=== PATIENT | female | born 1955 | race Caucasian/White ===

== ENCOUNTER 2021-03-24 15:06 | Inpatient (IN) | payer OTHER ==
[~2021-03-24] VITALS: Ht 152.4 cm; Wt 62.3 kg
--- NOTE | ~2021-03-24 | HC ---
[facility] [place] [address] CONSULTATION Name: RUBY WHYTE Room #: 208-P [facility] IN M.R.#: [id number] Admission: 03/24/21 Attend Phys: Tre Snell MD Discharge: Date of : 57 Report #: [id number] THIS REPORT FOR: cc: FAM - No family physician/PCP FAM - No family physician/PCP Terell Seo MD ~ DATE OF SERVICE: 03/28/2021 HISTORY OF PRESENT ILLNESS: The patient is a 65-year-old white female admitted with mental status changes, noted to have toxic metabolic encephalopathy. History of ETOH abuse. Noted to have failure to thrive. She also was noted to have uterine fibroids with pelvic ultrasound and Gynecology consultation. She is noted to have anemia, has been seen by Hematology and thought to be bone marrow toxicity due to her chronic alcoholism. Noted to have a history of daily ETOH abuse, drinking upwards of 4 glasses of wine. We are seeing her in rehabilitation medicine consultation. PAST MEDICAL HISTORY: Includes daily ETOH use. She has a history of chronic anemia. HABITS: Past tobacco abuse, 10-year history. MEDICATIONS: Please see the full medication list. SOCIAL HISTORY: Lives alone in an apartment. Premorbidly gait was without an assistive device, although there is some reference to using some type of a shopping cart although the patient is uncertain regarding this. She apparently uses a walker when she was feeling unstable. The patient is not employed and does not remember if she worked or not until her sister corrected her that she actually was working, but had been unfortunately fired from her most recent job. The sister is here visiting from [place] and there is a brother that lives about 25 minutes away here in the [place] area. There are no other direct family members other than some nieces and nephews. REVIEW OF SYSTEMS: The patient did not offer any current complaints of chest pain, shortness of breath or abdominal discomfort. PHYSICAL EXAMINATION: GENERAL: A 65-year-old white female in no obvious distress. She is alert, pleasant. She follows basic 1-step commands. VITAL SIGNS: Temperature 36.4, pulse 111, respirations 16, blood pressure 122/88. NEUROLOGIC: Alert, follows basic commands. Facies are symmetric. She has definite latency to her responses, appears unsure of herself, defers to her sister. EXTREMITIES: Functional range of motion of both upper extremities, strength is [facility] [address] [place] [address] CONSULTATION Name: RUBY WHYTE Room #: 208-P [facility] IN .R.#: [id number] Admission: 03/24/21 Attend Phys: Tre Snell MD Discharge: Date of : 57 Report #: [id number] grade 4-/5. Lower extremities, no focal calf swelling. Functional range of motion, strength is grade 4-/5 to 3+/5. She is min assist; sit to stand, gait 58 feet min assist with a front-wheeled walker. Lower extremity dressing is max assist. She has moderate cognitive deficits with moderate to severe memory deficits noted per speech therapy. ASSESSMENT: A 65-year-old white female with the following problem list: 1. Toxic metabolic encephalopathy. 2. Dementia, likely worsened by chronic alcoholism. 3. Anemia, likely due to chronic alcohol toxicity. 4. Uterine fibroids with [employer] consult. 5. Enteritis seen on CT was on Zosyn, which appears to have resolved now. 6. Failure to thrive. PLAN: Insurance will need to be checked regarding rehab therapy options. Issues regarding long-term living situation were discussed with the patient's sister. We discussed a rehabilitation program then hopefully with further progress with physical rehabilitation she could then attempt some type of alcohol rehabilitation program. She first needs to improve overall physically and cognitively, however. Again, insurance will need to be checked regarding rehab therapy options. By: [id number] Terell Seo MD /nt
[~2021-03-24 15:06] MED LIST: ATIVAN0.5 MG PO; ST. JOHN'S WOR150 MG PO; [UNRECOGNIZED DRUG - OTHER] PO
[2021-03-24 15:07] VITALS: BP 130/90
[2021-03-24 15:48] LABS: ABSOLUTE NEUTROPHILS 7.3 thou/uL (1.4-8.2); BASOPHILS 0.8 % (0.0-2.0); EOSINOPHILS 0.2 % (0.0-3.0); HEMATOCRIT 28.3 % (37.0-47.0); HEMOGLOBIN 9.4 gm/dL (12.0-15.0); LYMPHOCYTES 22.4 % (24.0-44.0); MCH 34.4 pg (26.0-34.0); MCHC 33.2 g/dL (28.0-37.0); MCV 103.6 fL (80.0-100.0); MONOCYTES 6.5 % (1.0-8.0); PLATELET COUNT 253 thou/uL (150-400); POLYS 70.1 % (36.0-66.0); RBC 2.74 mil/uL (4.20-5.00); RDW 21.1 % (10.5-14.5); WBC 10.4 thou/uL (4.0-11.0)
[2021-03-24 16:08] LABS: CALCIUM 8.4 mg/dL (8.5-10.1); CREATININE 1.1 mg/dL (0.6-1.0); POTASSIUM 3.4 mmol/L (3.5-5.1)
[2021-03-24 16:11] LABS: TOTAL BILIRUBIN 1.6 mg/dL (0.2-1.0); TOTAL PROTEIN 5.9 g/dL (6.4-8.2)
[2021-03-24 19:37] LABS: URINE BLOOD TRACE (Negative); URINE CLARITY CLEAR; URINE COLOR YELLOW; URINE GLUCOSE-RANDOM* NEGATIVE (Negative); URINE KETONES 2+ (Negative); URINE LEUKOCYTES-REFLEX TRACE (Negative); URINE NITRITE-REFLEX NEGATIVE (Negative); URINE PROTEIN (DIPSTICK) NEGATIVE (Negative)
[2021-03-24 19:42] LABS: ICTOTEST (BILI CONFIRMATORY) Negative (Negative); URINE BILIRUBIN NEGATIVE (Negative)
[2021-03-24 19:45] LABS: AMP/METHAMP Negative (Negative); BARBITURATES Negative (Negative); BENZODIAZEPINES Negative (Negative); COCAINE Negative (Negative); METHADONE Negative (Negative); OPIATES Negative (Negative); PCP Negative (Negative)
[2021-03-24 20:24] LABS: TROPONIN-I <0.06 ng/mL (<0.06)
[2021-03-24 22:30] VITALS: BP 131/85
--- NOTE | 2021-03-24 22:57 | NUR ---
SPOKE WITH PT BROTHER, HE IS CONCERNED THAT PT WANTS TO LEAVE AND NOT BE ADMITTED. SHE CALLED HIM TO COME AN PICK HER UP BUT HE IS CONCERNED THAT THAT IS NOT THE BEST THING FOR HER. TOLD BROTHER TO GO HOME AND THAT IF THE PT CALLS HIM HE CAN SAY THAT WE TOLD HIM THAT HE COULD NOT COME BACK TO THE ER [facility] AND NEEDED TO WAIT UNTIL MORNING. ASSURED BROTHER THAT PT WOULD RECEIVE BEST CARE HERE AT HOSPITAL.
[2021-03-25 05:00] VITALS: BP 141/81
[2021-03-25 08:24] LABS: HEMATOCRIT 24.7 % (37.0-47.0); HEMOGLOBIN 8.2 gm/dL (12.0-15.0); MCH 34.1 pg (26.0-34.0); MCHC 33.2 g/dL (28.0-37.0); MCV 102.9 fL (80.0-100.0); RBC 2.4 mil/uL (4.20-5.00); RDW 21.6 % (10.5-14.5)
[2021-03-25 08:30] LABS: CALCIUM 7.4 mg/dL (8.5-10.1); CREATININE 0.9 mg/dL (0.6-1.0); POTASSIUM 3.1 mmol/L (3.5-5.1)
[2021-03-25 08:36] LABS: % SATURATION 84 % (20-39); IRON 71 ug/dL (50-170); TIBC 85 ug/dL (250-450)
--- NOTE | 2021-03-25 09:50 | EKG ---
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 03/25/21 0950 [id number] [id number] Blair Bush MD, FACC /EPI
[2021-03-25 17:58] VITALS: BP 138/87
[2021-03-25 18:20] VITALS: BP 147/98
[2021-03-25 22:40] VITALS: BP 146/83
[2021-03-26 00:07] VITALS: BP 154/102
--- NOTE | 2021-03-26 03:31 | NUR ---
ASSESSMENT: PT WAS ADMITTED RIGHT AT SHIFT CHANGE TO THE UNIT, COMING FROM ED. PT IS ALERT AND PLEASANTLY CONFUSED TO PLACE, TIME AND SITUATION. PT'S BROTHER AND SISTER WERE VISITING. PT DOES NOT ANSWER QUESTIONS APPROPRIATELY, STATES THAT SHE IS "SCARED" AND HAS NEVER BEEN HERE BEFORE. LOTS OF REASSURANCE AND ENCOURAGEMENT GIVEN. VSS, AFEBRILE. PT STATE THAT SHE DRINKS GLASSES OF WINE, ALONE AND SHE ALSO "DRINKS OTHER STUFF, LIKE COLA, JUICE.... PT HAS VERY FINE TREMORS, SLIGHT SWEATINESS AND VERY MILD TREMORS. PT ABLE TO STATE BB AND NAME. DID NOT RECALL THE NAME OF THE HOSPITAL, WHY SHE WAS HERE AND THE DAY OF THE WEEK. WILL CONTINUE TO MONITOR.
[2021-03-26 04:29] LABS: HEMATOCRIT 23.1 % (37.0-47.0); HEMOGLOBIN 7.7 gm/dL (12.0-15.0); MCH 34.4 pg (26.0-34.0); MCHC 33.5 g/dL (28.0-37.0); MCV 102.5 fL (80.0-100.0); RBC 2.25 mil/uL (4.20-5.00); RDW 21.3 % (10.5-14.5); WBC 5.7 thou/uL (4.0-11.0)
[2021-03-26 04:40] LABS: CALCIUM 7.2 mg/dL (8.5-10.1); CREATININE 0.8 mg/dL (0.6-1.0); MAGNESIUM 1.7 mg/dL (1.8-2.4)
[2021-03-26 04:43] LABS: POTASSIUM 2.8 mmol/L (3.5-5.1)
[2021-03-26 06:13] VITALS: BP 152/104
[2021-03-26 07:28] VITALS: BP 144/97
[2021-03-26 12:07] LABS: FOLIC ACID 11.9 ng/mL (8.6-58.9)
[2021-03-26 14:02] LABS: MAGNESIUM 2.2 mg/dL (1.8-2.4)
[2021-03-26 14:07] LABS: POTASSIUM 3.9 mmol/L (3.5-5.1)
[2021-03-26 15:12] VITALS: BP 132/90
[2021-03-26 19:59] VITALS: BP 116/83
[2021-03-27 03:12] LABS: HEMATOCRIT 22.6 % (37.0-47.0); HEMOGLOBIN 7.5 gm/dL (12.0-15.0); MCH 34.1 pg (26.0-34.0); MCHC 33.2 g/dL (28.0-37.0); RBC 2.19 mil/uL (4.20-5.00); RDW 21.5 % (10.5-14.5); WBC 6.2 thou/uL (4.0-11.0)
[2021-03-27 03:23] LABS: CALCIUM 7.4 mg/dL (8.5-10.1); CREATININE 0.8 mg/dL (0.6-1.0); MAGNESIUM 2.4 mg/dL (1.8-2.4); POTASSIUM 3.9 mmol/L (3.5-5.1)
[2021-03-27 03:29] VITALS: BP 153/99
--- NOTE | 2021-03-27 04:12 | NUR ---
PT IS ALERT X2. WITH CONFUSION FREQUENTLY BUT PLEASANT PT. LUNGS ARE CLEAR ON ROOM AIR. DENIES ANY PAIN. NO EDEMA NOTED. ABDOMEN IS FLAT BOWEL SOUNDS ACTIVE X4. FREQUENT ROUNDING ON PT DUE TO HISTORY OF FALLS. YELLOW SOCKS AND BED ALARM ON. WILL CONTINUE TO ASSESS AND MONITOR PER NURSING.
[2021-03-27 07:54] VITALS: BP 155/91
[2021-03-27 09:46] LABS: ABSOLUTE RETIC COUNT 0.1054 10^6/uL; OBSERVED RETIC COUNT 3.77 % (0.6-2.6)
[2021-03-27 10:59] VITALS: BP 128/87
[2021-03-27 15:59] VITALS: BP 131/94
--- NOTE | 2021-03-27 18:13 | NUR ---
ASSUMED CARE AT 1300. PT AFEBRILE, ADEQUATE UOP, NO BM, APPROPRIATE APPETITE. TRANSVAGINAL ULTRASOUND COMPLETED. PT HAS BEEN UPDATED AND EDUCATED ON CONDITION AND POC. PT SLOWLY PROGRESSING TOWARDS POC.
[2021-03-27 19:28] VITALS: BP 124/87
[2021-03-27 23:06] LABS: HAPTOGLOBIN 147 mg/dL (37-355); HEMOGLOBIN 9.7 g/dL (11.1-15.9); IgA 259 mg/dL (87-352); IgG 999 mg/dL (586-1602); IgM 473 mg/dL (26-217)
[2021-03-28 00:30] VITALS: BP 140/94
[2021-03-28 03:55] LABS: HEMATOCRIT 21.4 % (37.0-47.0); HEMOGLOBIN 7.2 gm/dL (12.0-15.0); MCH 35.3 pg (26.0-34.0); MCHC 33.8 g/dL (28.0-37.0); MCV 104.4 fL (80.0-100.0); RBC 2.05 mil/uL (4.20-5.00); RDW 22.2 % (10.5-14.5)
[2021-03-28 04:04] LABS: CALCIUM 7.5 mg/dL (8.5-10.1); CREATININE 0.7 mg/dL (0.6-1.0); MAGNESIUM 2.1 mg/dL (1.8-2.4); POTASSIUM 3.7 mmol/L (3.5-5.1)
--- NOTE | 2021-03-28 04:13 | NUR ---
PT IS ALERT AND ORIENTED X2 WITH PERIODS OF CONFUSION. LUNGS ARE CLEAR. ABDOMEN IS SOFT AND FLAT. DENIES ANY PAIN NOTED. RESTARTED IV IN RIGHT FOREARM HER OTHER ONE IN LEFT ARM WAS LEAKING AT THE BEGINNING OF SHIFT. CALL LIGHT WITHIN REACH AND CALLS FOR ASSISTANCE IF NEEDED
[2021-03-28 05:59] VITALS: BP 156/101
[2021-03-28 08:25] VITALS: BP 122/88
[2021-03-28 12:00] VITALS: BP 100/73
[2021-03-28 16:06] LABS: KAPPA FREE LIGHT CHAINS 26.6 mg/L (3.3-19.4); KAPPA/LAMBDA RATIO 0.9 (0.26-1.65); LAMBDA FREE LIGHT CHAINS 29.6 mg/L (5.7-26.3)
--- NOTE | 2021-03-28 17:18 | NUR ---
Met with patient and sister at bedside. Patient resides at home in [facility]. She reports she does not have a walker but may use a shopping cart if needed.Patient has a car and drives but has not driven in since December. Patient works at [employer] but has not worked since December. Sister has called [employer] to begin [employer] process. Patient reports she drinks 4 ETOH drinks a day. She has no hx of ETOH treatment. Gave cigna list and reviewed. Patient not a candidate for [facility]. Family to review list and discuss options.
--- NOTE | 2021-03-28 17:36 | NUR ---
Met with patient who is to dc home today. patient resides in [facility]. She has a walker for ambulation. patient reports at pr her dtr cannot transport she is concerned with getting transport home. she does not have her walker here at [facility]. Patient reports she has [facility] care on service. Plan for [facility] [employer] van for home. Sp with admissions at [facility] who reports they do have patient on service. Faxed orders to [facility] [employer] van for [phone]. Verified address. Updated RN.
[2021-03-28 17:44] VITALS: BP 108/78
[2021-03-28 20:17] VITALS: BP 115/75
--- NOTE | 2021-03-29 03:37 | NUR ---
ASSESSMENT DOCUMENTED.PT BEEN RESTING IN NO ACUTE DISTRESS.A/OX3.VSS.SR N MONITOR.ASSIST WITH ADLS X1 -2 ASSIST.PT DENIES ANY NEEDS AT THIS TIME.POSSIBLE DISCHARGE TO SNF WHENEVER STABLE.
[2021-03-29 03:59] LABS: HEMATOCRIT 22.4 % (37.0-47.0); HEMOGLOBIN 7.4 gm/dL (12.0-15.0); MCH 34.5 pg (26.0-34.0); MCHC 32.9 g/dL (28.0-37.0); MCV 104.8 fL (80.0-100.0); RBC 2.13 mil/uL (4.20-5.00); RDW 22.5 % (10.5-14.5); WBC 5.5 thou/uL (4.0-11.0)
[2021-03-29 04:28] LABS: CALCIUM 7.7 mg/dL (8.5-10.1); CREATININE 0.8 mg/dL (0.6-1.0); POTASSIUM 3.9 mmol/L (3.5-5.1)
[2021-03-29 04:31] VITALS: BP 144/93
[2021-03-29 08:09] VITALS: BP 139/105
[2021-03-29 13:08] LABS: GLOBULIN TOTAL 2.9 g/dL (2.2-3.9); M-SPIKE Not Observed g/dL (Not Observed)
--- NOTE | 2021-03-29 13:29 | NUR ---
SPOKE WITH SISTER AND PATIENT THEY WISH FOR REFERRALS TO [facility]. REFERRAL SENT TO [facility] PATIENT IS STABLE TO TRANSITION TO SKILLED CARE. SP WITH [facility] REGARDING REFERRAL.
[2021-03-29 16:06] LABS: CA 125 417.3 U/mL (0.0-38.1)
[2021-03-29 17:42] VITALS: BP 129/97
[2021-03-29 20:00] VITALS: BP 122/92
--- NOTE | 2021-03-29 22:32 | NUR ---
PATIENT TRANSFERRED TO [facility] ROOM 461. FULL DETAILED REPORT GIVEN WITH PATIENTS SISTER NOTIFIED OF TRANSFER.
--- NOTE | 2021-03-30 04:52 | NUR ---
PT REMAIN ALERT AND ORIENT TIMES ONE-TWO. DOES KNOW THE PLACE THAT SHE IS IN AND HER NAME. TALKS ABOUT THINGS ON THE WALL AND DOGS GOING IN AND OUT OF THE WINDOW AREA. BP ELEVATED UPON ARRIVAL. SR-ST PER MONITOR. SLOW PROGRESS WILL CONTINUE TO MONITOR.
[2021-03-30 08:40] VITALS: BP 152/113
--- NOTE | 2021-03-30 09:10 | NUR ---
spoke with Carmen from [facility]. She reports patient hotlined for concerns for ability to care for self at home. [phone]. Updated referrral to [facility]. Planned to update of dc plan once established.
[2021-03-30 14:07] LABS: CEA 2.8 ng/mL (0.0-4.7)
--- NOTE | 2021-03-30 19:59 | NUR ---
Assumed pt care this am, vs stable. diet and medications tolerated well. Pain is managed with medications. Was able to work with physical therapy, gait is not steady. Sister at the bedside, POC followed endorsed to the night nurse.
[2021-03-30 20:07] VITALS: BP 148/95
--- NOTE | 2021-03-31 05:52 | NUR ---
Assumed pt care at 1900. A/OX2-3,able to make needs known at times.VSS. C/o pain allover,medicated with Tylenol/Voltaren gel with relief reported. Up with assist of 1-2 to BSC.Continent of bladder this shift. Fall precautions in palce,frequent checks on pt. Will continue to monitor pt.
[2021-03-31] MEDS ORDERED: DICLOFENAC SOD100 G1 TOP (12:22)
[2021-03-31] MEDS ORDERED: ABILIFY 2 MG2 M1 PO (12:22)
--- NOTE | 2021-03-31 12:46 | NUR ---
PT IS A&O*2, ROOM AIR, REPORT SORE ON LEGS AND ARMS AND PARTIAL RELIEFED WITH DICLOFENAC CREAM AND REPOSTION. PT GET UP ASSIT BY 2 AND USE BED SIDE COMMODE. BM TODAY. SISTER IS IN BEDSIDE WITH PTAINET. HR 87 AT 8:00. BED BATH GIVEN. BED ALARM IS ON.
--- NOTE | 2021-03-31 13:27 | NUR ---
CALLED FOR REPORT TO NIKI IN [facility] AT 13:30. DISCHARGE DOCUMENTS AND EDUCATION IS DONE WITH PATINET AND SISTER. WILL REMOVE IV AND TELE BEFORE PT LEAVE. EXPECTED LEAVING TIME IS 14:15 WITH TRANSPORTATION.
--- NOTE | 2021-03-31 15:39 | NUR ---
Patient stable for discharge for [facility] care. Patient/Sister chose [facility] who is accepting. Faxed orders, chart copied. van for 1400. Patient and sister in agreement. Sister reports she and brother have gone to patients apt and concerned with appearance. Report she was working until December and was let go from employment. She is concerned how quickly she deteriorated. She plans to move her to [place] to be closer with her.
== END 2021-03-31 15:13 | DRG 91 ==
LOC: ER 15:06 → 2N 20:50 → EROBS 20:50 → 2N 03-25 18:20 → 4W 03-29 22:36
PROVIDERS: Emergency Medicine; Internal Medicine Hematology & Oncology; Nurse Practitioner Family; Obstetrics & Gynecology; ADMIT Internal Medicine; ATTEND Internal Medicine
DX: G92 Toxic encephalopathy (principal); E43 Unspecified severe protein-calorie malnutrition; E87.2 Acidosis; D53.9 Nutritional anemia, unspecified; K52.9 Noninfective gastroenteritis and colitis, unspecified; D25.9 Leiomyoma of uterus, unspecified; F03.90 Unspecified dementia, unspecified severity, without behavioral disturbance, psychotic disturbance, mood disturbance, and anxiety; R62.7 Adult failure to thrive; I10 Essential (primary) hypertension; K08.409 Partial loss of teeth, unspecified cause, unspecified class; F10.20 Alcohol dependence, uncomplicated; E83.10 Disorder of iron metabolism, unspecified; R19.00 Intra-abdominal and pelvic swelling, mass and lump, unspecified site; F25.9 Schizoaffective disorder, unspecified; Z20.822 Contact with and (suspected) exposure to COVID-19; Z68.26 Body mass index [BMI] 26.0-26.9, adult; Z79.899 Other long term (current) drug therapy; Z87.891 Personal history of nicotine dependence
CPT/HCPCS: 10045; 10081